=== PATIENT | male | born 1955 | race Asian ===

== ENCOUNTER 2016-09-28 08:38 | Day surgery (SDC) | payer OTHER ==
[~2016-09-28] VITALS: Ht 160 cm; Wt 68.0 kg
[~2016-09-28 08:38] MED LIST: 0.9% Sodium Chloride 1,000 ML IV SCH; OMEP20CA11 PO; Sodium Chloride LOK Flush 10 mL Syringe IV PRN; fentaNYL-PF 50 mCg/mL 2 mL Inj IVPUSH PRN
[2016-09-28 09:44] VITALS: BP 143/98; PULSE 69; RESP 16; O2SAT 97
[2016-09-28 11:31] VITALS: BP 130/86; PULSE 68; O2SAT 89
[2016-09-28 11:53] VITALS: BP 119/77; PULSE 75; RESP 12; O2SAT 94
[2016-09-28 12:01] VITALS: BP 130/90; PULSE 72; RESP 12; O2SAT 96
--- NOTE | 2016-09-28 16:05 | ENDO ---
[address] [address] ENDOSCOPY PROCEDURE PATIENT: NICOLE SCHMITT : 1955 MR#: [id number] ADMIT: 09/28/2016 JOB ID: [id number] OPERATION: Esophagogastroduodenoscopy (EGD) with biopsy. PREOPERATIVE DIAGNOSIS(ES): 1. Dysphagia. 2. Gastroesophageal reflux disease. POSTOPERATIVE DIAGNOSIS(ES): Moderate erosive distal esophagitis from 35 cm from the incisors to 40 cm. Status post biopsy. ANESTHESIA: Fentanyl 100 mcg, Versed 5 mg IV administered. COMPLICATIONS: None. BLOOD LOSS: Minimal. DESCRIPTION OF PROCEDURE: After the risks and benefits were explained to the patient, informed consent was obtained. After anesthesia was administered, the upper endoscope was inserted in the mouth and intubated through the esophagus, stomach, and second portion of the duodenum, and the mucosa carefully examined. After the procedure was done, the scope was withdrawn and the procedure terminated. FINDINGS: Upon inspection of the esophagus, there was moderate erosive esophagitis that was seen. The esophagus itself from 35 cm to 40 cm from incisors status post biopsy. The Z-line located at 40 cm from the incisors. Upon entering the stomach, the stomach appeared normal, without masses, ulcers, or lesions. Retroflexion was normal. Duodenal bulb, first and second portions were normal. Biopsies were taken in the antrum, body, and mid and distal esophagus. IMPRESSION: Mild erosive esophagitis from 35 cm to 40 cm from incisors. Status post biopsy. RECOMMENDATIONS: 1. Increase omeprazole to 40 mg by mouth twice a day. 2. Carafate 1 g by mouth four times a day. 3. Await pathology results. 4. Follow up in GI Clinic in one month.
--- NOTE | 2016-10-01 15:47 | PATH ---
SURGICAL PATHOLOGY Attending Physician:Cooper Meza MD CASE STATUS: Signed Out PATIENT NAME: NICOLE SCHMITT PID: [id number] : 1955 DATE COLLECTED:09/28/2016 21:54 SPECIMEN: 1: Stomach, Antrum, Biopsy 2: Gastric, Biopsy 3: Esophagus, Biopsy 4: Esophagus, Biopsy CLINICAL HISTORY: DYSPHAGIA 1). ANTRUM BIOPSY 2). GASTRIC BODY BIOPSY 3). MID ESOPHAGUS BIOPSY 4). DISTAL ESOPHAGUS BIOPSY FINAL DIAGNOSIS: 1. Antrum, Biopsy: Antral mucosa with no diagnostic alteration. Negative for intestinal metaplasia. Negative for Helicobacter pylori organisms. Negative for dysplasia and malignancy. 2. Gastric Body Biopsy: Portions of gastric body-type mucosa with no diagnostic abnormality. Negative for intestinal metaplasia, dysplasia, and malignancy. No H. pylori organisms identified by H&E stain. Immunohistochemistry studies pending; results will be reported as an addendum. 3. Mid Esophagus, Biopsy: Squamous epithelium wit no diagnostic abnormality. Intraepithelial eosinophils are not increased. Negative for dysplasia and malignancy. 4. Distal Esophagus, Biopsy: Focal active esophagitis. A fungal stain is pending; results will be reported as an addendum. Detached fragments of columnar mucosa demonstrate reactive changes. Scant tissue volume and tissue disruption precludes definitive assessment for involvement by intestinal metaplasia/Hickey's metaplasia. The specimen consists predominantly of squamous mucosa with no intact junctional mucosa present. ICD10: K20.9 GROSS DESCRIPTION: The specimen is received in four formalin filled containers labeled with the patient's name. 1). The specimen is labeled "antrum" and consists of 2 portions of tissue which aggregate to 0.3 x 0.2 x 0.2 CM. The specimen is entirely submitted in cassette 1A. 2). The specimen is labeled "gastric body" and consists of 2 portions of tissue which aggregate to 0.4 x 0.3 x 0.2 CM. The specimen is entirely submitted in cassette 2A. 3). The specimen is labeled "mid esophagus" and consists of a 0.2 x 0.2 x 0.2 CM portion of tissue which is entirely submitted in cassette 3A. 4). The specimen is labeled "distal esophagus" and consists of a 0.2 x 0.2 x 0.2 CM portion of tissue which is entirely submitted in cassette 4A. 09/28/2016[place] ICD-9 CODES: CPT CODES: 1: 55964 2: 72551, 49378 3: 78205 4: 06757, 13932, 00391 PROCEDURE/ADDENDA: Immunohistochemistry SPI Interpretation {Not Entered} Results-Comments Part 2: Immunohistochemical stains are performed to further evaluate for the presence of Helicobacter organisms. The patient tissue is stained with monoclonal antibody to Helicobacter pylori (SP48). Positive and negative controls stain appropriately. Result: The patient tissue shows no staining. Interpretation: The gastric mucosa is negative for Helicobacter pylori by immunohistochemical stains. Part 4. A PAS stain is performed to further evaluate for the presence of fungal organisms. Positive and negative controls stain appropriately. Result: The patient tissue shows no organisms. Interpretation: The distal esophageal mucosa is negative for fungal organisms by PAS stain. Part 4: An CEE immunohistochemistry stain is performed. Positive and negative controls stains appropriately. No atypical epithelial cells identified. 2. GASTRIC BODY BIOPSY: Negative for H. pylori organisms by immunohistochemistry studies. 4. DISTAL ESOPHAGUS, BIOPSY: Negative for fungal organisms by PAS stain. No atypical epithelial cells identified by CEE immunohistochemistry studies. This test was developed and its performance characteristics determined by [employer] It has not been cleared or approved by the [place]. Food and Drug Administration. The FDA has determined that such clearance or approval is not necessary. This test is used for clinical purposes. It should not be regarded as investigational or for research. Electronically Signed Out Cierra Noel MD Electronically Signed Out Cierra Noel MD [facility], [place] [address] Technical component performed at [facility], [address] [place] [address] Ave[address], [place], [address]
== END 2016-09-28 23:59 | disposition home or self-care (01) ==
LOC: END 08:38
PROVIDERS: ATTEND Internal Medicine Gastroenterology
DX: K20.8 Other esophagitis (principal); K21.9 Gastro-esophageal reflux disease without esophagitis; R13.10 Dysphagia, unspecified; F32.9 Major depressive disorder, single episode, unspecified; F41.9 Anxiety disorder, unspecified; F12.90 Cannabis use, unspecified, uncomplicated